=== PATIENT | male | born 1960 | race Caucasian/White ===

== ENCOUNTER 2017-07-24 13:12 | Emergency (ER) | payer OTHER ==
[~2017-07-24] VITALS: Ht 185.4 cm; Wt 97.1 kg
[~2017-07-24 13:12] MED LIST: AMITRIPTYLINE H25 M3 PO; BENADRYL25 MG; BENZTROPINE ME0.5 MG PO; BUSPIRONE HCL15 MG PO; KEFLEX500 MG PO; NEURONTIN 400M400 M2 PO; PERCOCET 5-3251 EACH PO; PREDNISONE 20 M20 MG PO; RANITIDINE; TRAZODONE HCL100 MG PO; VISTARIL 25 MG25 M1 OR; XANAX 0.5 MG0.5 M1 PO
[2017-07-24 13:39] LABS: ABSOLUTE BASOPHILS 0.1 thou/uL (0.0-0.2); ABSOLUTE EOSINOPHILS 0.3 thou/uL (0.0-0.7); ABSOLUTE LYMPHOCYTES 1.7 thou/uL (0.8-5.3); ABSOLUTE MONOCYTES 0.7 thou/uL (0.0-1.2); ABSOLUTE NEUTROPHILS 4.4 thou/uL (1.6-8.1); BASOPHILS 1.2 %; EOSINOPHILS 4.6 %; HEMATOCRIT 45.3 % (42.0-52.0); HEMOGLOBIN 15.4 gm/dL (14.0-18.0); LYMPHOCYTES 23.5 %; MCH 31.6 pg (26.0-34.0); MCV 92.9 fL (80.0-100.0); MONOCYTES 9.6 %; NUCLEATED RBCS 0 /100WBC; PLATELET COUNT* 250 thou/uL (150-400); POLYS 61.1 %; RBC 4.87 mil/uL (4.50-6.00); RDW-CV 13.8 % (10.5-14.5); WBC 7.2 thou/uL (4.0-11.0)
[2017-07-24 13:47] LABS: ANION GAP 10 mmol/L (7-16); BUN 20 mg/dL (7-18); CALCIUM 9.2 mg/dL (8.5-10.1); CHLORIDE 101 mmol/L (98-107); CO2 28 mmol/L (21-32); CREATININE 1.3 mg/dL (0.6-1.3); GLUCOSE 94 mg/dL (70-99); SODIUM 139 mmol/L (136-145)
[2017-07-24 13:54] LABS: ALBUMIN 3.9 g/dL (3.4-5.0); ALKALINE PHOSPHATASE 87 U/L (46-116); LIPASE 177 U/L (73-393); SGOT 33 U/L (15-37); SGPT 32 U/L (30-65); TOTAL BILIRUBIN 0.5 mg/dL (<0.1-1.0); TOTAL PROTEIN 7.7 g/dL (6.4-8.2); TROPONIN-I LEVEL <0.06 ng/mL (<0.06)
[2017-07-24] MEDS ORDERED: AMITRIPTYLINE H25 M4 PO (15:51)
[2017-07-24 16:08] VITALS: BP 138/89
--- NOTE | 2017-07-24 16:35 | EKG ---
[place] [address] ELECTROCARDIOGRAM REPORT Name: CARROL MENDOZA Room: [facility] Nuzhat#: [id number] Admission: 07/24/17 Attend Phys: Discharge: 07/24/17 Date of : 64 Report #: [id number] THIS REPORT FOR: //name// [facility] ED Test Date: 2017-07-24 Test Time: 13:13:52 Pat Name: CARROL MENDOZA Department: Room: Gender: Spine Nurse: Fredy HERNANDEZ : 1960 Requested By: Maria R Kimbrough Order Number: [id number] MD: Hoang Ratliff Measurements Intervals [place] Rate: 68 P: 61 SC: 167 QRS: 29 QRSD: 119 T: 44 QT: 441 QTc: 470 Interpretive Statements Sinus rhythm septal q waves noted Nonspecific intraventricular conduction delay Compared to ECG 02/03/2013 17:49:11 no change Electronically Signed On 07-24-2017 16:35:21 [employer] by Hoang Ratliff [email or web address] <ELECTRONICALLY SIGNED> By: Hoang Ratliff MD, [facility] 07/24/17 1635 1313 1313 Hoang Ratliff MD, FACC /EPI
== END 2017-07-24 16:09 | disposition home or self-care (01) ==
LOC: M.ERS 13:12
PROVIDERS: Personal Emergency Response Attendant
DX: F41.9 Anxiety disorder, unspecified (principal); I10 Essential (primary) hypertension; F17.210 Nicotine dependence, cigarettes, uncomplicated; Z90.49 Acquired absence of other specified parts of digestive tract; Z87.442 Personal history of urinary calculi; Z91.013 Allergy to seafood; Z88.5 Allergy status to narcotic agent

== ENCOUNTER 2019-04-18 22:41 | Emergency (ER) | payer OTHER ==
[~2019-04-18] VITALS: Ht 188 cm; Wt 90.7 kg
[~2019-04-18 22:41] MED LIST changes: +AMITRIPTYLINE H25 M4 PO
[2019-04-18 22:46] VITALS: BP 144/109
[2019-04-18] MEDS ORDERED: VALIUM5 MG PO (23:26)
--- NOTE | 2019-04-20 08:40 | EKG ---
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: : 1960 Requested By: Sofya Nava Order Number: [id number] MD: Aguilar Velasco Measurements Intervals [place] Rate: 79 P: 53 [place]: 169 QRS: -3 QRSD: 114 T: 44 QT: 400 QTc: 459 Interpretive Statements Sinus rhythm Anteroseptal infarct, old, possible Compared to ECG 07/24/2017 13:13:52 Myocardial infarct finding now present Q waves no longer present Intraventricular conduction delay no longer present Electronically Signed On 04-20-2019 8:40:25 CDT by Aguilar Velasco [email or web address] <ELECTRONICALLY SIGNED> By: Aguilar Velasco MD, [facility] 04/20/19 0840 2244 43 Aguilar Velasco MD, [facility] /EPI
== END 2019-04-18 23:33 | disposition home or self-care (01) ==
LOC: M.ERS 22:41
DX: F41.9 Anxiety disorder, unspecified (principal); I10 Essential (primary) hypertension; F17.210 Nicotine dependence, cigarettes, uncomplicated; Z88.5 Allergy status to narcotic agent; Z91.030 Bee allergy status; Z87.442 Personal history of urinary calculi; Z90.49 Acquired absence of other specified parts of digestive tract